=== PATIENT | male | born 1970 | race Two or more races ===

== ENCOUNTER 2024-05-20 14:19 | Emergency (ER) | payer SELFPAY ==
[2024-05-20] VITALS (14 sets, daily range): BP systolic 106–141; BP diastolic 59–78; PULSE 66–98; RESP 1–25; TEMP 36.4–37.2; O2SAT 93–99; BMI 21.4
--- NOTE | 2024-05-20 14:44 | PD.EDSEIZ ---
ED Seizures RME/HPI General Chief Complaint: Seizure Stated Complaint: SIEZURE Time Seen by Provider: 05/20/24 14:44 Arrival date/time: 05/20/24 14:19 RME / HPI RME / HPI Narrative: 53 year old male presents to the ED [facility] for seizure today. Per medics, seizure was witnessed by others in the [facility], described as tonic-clonic and lasting 1 minute. While in the ED patient has no complaints. Patient mentioned he does have history of seizures and on Dilantin, which he last took 3 days ago. Reportedly went to the pharmacy to get a refill of his medication which they did not fill. Patient unable to report why the medication was not filled. Patient admits to vaping. Denies smoking cigarettes, drug use, or drinking alcohol. Related Data Previous Rx's ?Medication ?Instructions ?Recorded levetiracetam 500 mg tablet 500 mg PO Q12H #20 tabs 10/05/21 (Keppra) levetiracetam 750 mg tablet 750 mg PO BID #60 tabs 05/20/24 Allergies Allergy/AdvReac Type Severity Reaction Status Date / Time No Known Allergies Allergy Verified 01/18/20 13:14 Review of Systems Review of Systems Narrative Review of Systems: Constitutional: DENIES; Fevers Eyes: DENIES; Loss of vision Head/Ear/Nose: DENIES; Loss of hearing Throat: DENIES; Dysphagia Cardiovascular: DENIES; Chest pain, dyspnea or syncope Respiratory: DENIES; Shortness of breath Gastrointestinal: DENIES; Rectal bleeding or melena. Genitourinary: DENIES; Dysuria (painful or difficult urination) Musculoskeletal: DENIES; Arthralgia (pain in a joint),; Skin: DENIES; Rash Neurological: SEE HPI +seizure. DENIES; Loss of function or movement Psychiatric: DENIES; recent major life stressor, emotional problem, illicit drug use or abuse Endocrinology: DENIES; Weight change Hematologic/Lymphatic: DENIES; Abnormal bruising Allergic/Immunologic: DENIES; Urticaria (hives) Past Medical History Past Medical History NEUROLOGIC: Positive Seizures (EPILEPSY) CARDIAC: Negative Congestive Heart Failure RESPIRATORY: Negative Chronic Obstructive Pulmonary Disease (COPD) GENITOURINARY: Negative Renal Disease ENDOCRINE: Negative Diabetes Mellitus Type 1 or Diabetes Mellitus Type 2 Social History SMOKING STATUS: Current every day smoker ED Exam Narrative Physical exam: Physical Exam: General: The vital signs were reviewed. He is alert awake smiling playful very thankful is very poor dentition the patient is non-toxic, in no apparent distress and appears healthy with a patent airway, no respiratory distress and has no apparent circulatory problems. Head & Scalp: Normocephalic, atraumatic. Face: Appears normal and is without lesions, deformity. Ears: Left external pinna appears normal. Right external pinna appears normal. Eyes: The sclera is anicteric. No obvious photophobia. The Left and Right Orbit/Lid/Conjunctiva appears normal without swelling, discoloration or injection. Nose: The nose is without deformity, discharge or tenderness; Throat: Appears normal. The mucous membranes are pink and moist without exudates, redness or mass seen. The tongue appears normal. Neck: The neck is supple and no apparent mass or adenopathy. Chest: The chest wall is normal in size and symmetry and has no chest wall tenderness or crepitus. The patient displays normal ventilator effort without retractions, accessory muscle use and has adequate air movement bilaterally with no wheezes and no rales. Cardiovascular: Regular rate and rhythm; No murmurs, rubs, or gallops; Gastrointestinal: The abdomen appears normal. No obvious hernias or mass. The abdomen is soft and benign, non-distended, with no pain, no guarding and no rebound tenderness. Bowel sounds are present and normal sounding. No CVA tenderness. Genitourinary: Back/Spine: Not as tender normal Spektor Extremities/Musculoskeletal/lymphatic: The bilateral upper and lower extremities are warm. There is no evidence of arterial insufficiency. There is no evidence of venous insufficiency/edema. The patient spontaneously moves bilateral upper and lower extremities with no pain and no limitation of movement. There is no apparent, injury or trauma. Skin: The skin is warm, dry and intact. No rashes. No petechia. No purpura. No abnormal bruising. The color is appropriate with no cyanosis. Mental status/Psychiatric: Mental status is appropriate for age. The patient has no apparent delusions, visual hallucinations, no apparent audible hallucinations. The patient has no apparent suicidal thoughts/ideation and no apparent homicidal thoughts/ideation. Neurological: The patient is awake, alert, interactive, cordial, cooperative and is oriented to name and situation. The patient follows commands and answers historical question with no impairment. There is no visual disturbance apparent. The pupils are equal and reactive bilaterally with normal eye movements and no diplopia The bilateral upper and lower extremities have normal strength, normal range of motion and normal functioning. The gait, station and balance appear to be baseline with no acute change Course Quality Measures none Orders Category Date Time Status Miscellaneous Nursing Order NOW Care 05/20/24 14:[address] head/brain wo con Stat Exams 05/20/24 14:45 Completed CBC Stat Lab 05/20/24 14:50 Completed Comprehensive Metabolic Panel Stat Lab 05/20/24 16:36 Completed Drug Screen,Urine Stat Lab 05/20/24 14:50 Completed Lactate (Lactic Acid) Stat Lab 05/20/24 14:50 Results Urinalysis, C/S if Indicated Stat Lab 05/20/24 14:50 Completed Venous Blood Gas Stat Lab 05/20/24 14:50 Completed LORazepam [Ativan Inj] Med 05/20/24 15:29 Discontinued 2 mg .ROUTE .STK-MED ONE LORazepam [Ativan Inj] Med 05/20/24 15:34 Discontinued 2 mg IVP X1 ONE levETIRAcetam INJ [Keppra Inj] Med 05/20/24 14:44 Discontinued 1,000 mg IVP X1 ONE Vital Signs Vital signs: Vital Signs Temperature 99 F 05/20/24 15:45 Pulse Rate 98 05/20/24 15:45 Respiratory Rate 17 05/20/24 15:45 Blood Pressure 141/78 H 05/20/24 15:45 Pulse Oximetry (%) 94 L 05/20/24 15:45 Oxygen Delivery Method Room Air 05/20/24 15:45 Pulse ox is 94% on room air which is adequate. Seizure MDM Narrative MDM Narrative:: Patient is been here several times in the past he has been noncompliant with his medications states he ran out of his Dilantin 3 days ago shows his bottle with all the paper worn off and there is no print on it in the last records we have here he was on Keppra. Patient states he used to drink but stopped drinking because he became a [employer]. Patient does not appear to be injured anywhere he does not appear to be ill in any way. Will load with some Keppra and do a mini workup and reevaluate. He clearly had 1 witnessed tonic-clonic seizure today. Medical workup was ordered on arrival including Keppra. CT of the head read by myself reveals no acute bleed. There is left parietal encephalomalacia otherwise the rest the brain scan appears grossly normal. Formal read is pending at 1541 hrs. At 1530 hrs. patient is having a tonic-clonic seizure in the room and nurse informed for the that the Keppra has not been given. He got loaded with Keppra and is got his Ativan and he has been sleeping since that time with no further seizure activity at 1716 hrs. Laboratory studies show a urine drug screen which is unremarkable urinalysis is unremarkable. Lactic acid came back at 6.1 which is not surprising as this was post tonic-clonic seizure. pH was 7.31 and the venous specimen close to normal. CBC is a white count of 6.5 hemoglobin 13.1. Patient's postictal and post sedation from the Ativan that was signed out to the oncoming doctor 1800 hrs. and he is alert awake and walking he can resume taking his Keppra at home At 1730 hrs. patient sleeping he arouses but falls back to sleep. Care to the oncoming doctor as mentioned above Patient data External records reviewed:: [facility] previous records (I reviewed ED visit on 10/05/2021) and EMS form Clinical information provided by:: patient and EMS Social determinants that could affect healthcare access:: housing ([facility]eless [facility] ) Patient has the following chronic illnesses:: seizures, medication noncompliance How is presenting disease/condition affected by chronic disease/condition?: exacerbated by Evaluation data The following diagnostics were reviewed and interpreted by me:: lab results, radiology exam(s) and EKG tracing(s) (Sinus rhythm, rate 89, no STEMI. ) Lab and/or radiology exams considered but not ordered:: None Interpretation Summary: Ordering Physician: Codey George MD Date of Service: 05/20/24 Procedure(s): CT head/brain wo con Accession Number(s): [id number] cc: Codey George MD; Vickey Us MD~ Examination: CT brain head without contrast. 2-D sagittal coronal reconstructions Date and time of exam:May 20, 2024 1408 hrs. Indications: Onset seizures today CTDI: vol (mGy):50.7 DLP: (mGycm):1055 Technique: Multiple CT axial sections of the brain have been obtained, 5 mm slice thickness. Contrast has not been administered. 2-D sagittal, coronal reconstructions have been obtained Low dose protocols were performed. One or more of the following dose reduction techniques were used; automated exposure control, adjustment of the mA and/or KV according to patient size, use of iterative reconstruction technique. Findings: No significant ventricular enlargement. Left frontal encephalomalacia Intra-axial or extra-axial hemorrhage density is not seen. No mass effect or midline shift Basal cisterns are not remarkable. Fourth ventricle is midline. Cranial vault intact. Impression: Negative for acute hemorrhage, mass effect or midline shift Consider elective brain MRI follow-up, pre and postcontrast, seizure protocol Dictated By: Vickey Us MD Signed By: <Electronically signed by Vickey Us MD in OV> 05/20/24 1535 Medications / Prescriptions Medications or Prescriptions considered but not ordered:: None Medication administrations:: Medication Administration History Discontinued Medications Levetiracetam (Levetiracetam Inj 100 Mg/Ml Vial 5ml) 1,000 mg IVP X1 ONE Stop: 05/20/24 14:45 Last Admin: 05/20/24 15:35 Dose: 1,000 mg Documented By: KALEN Lorazepam (Lorazepam 2 Mg/Ml Vial) 2 mg IVP X1 ONE Stop: 05/20/24 15:35 Last Admin: 05/20/24 15:35 Dose: 2 mg Documented By: KALEN Lorazepam (Lorazepam 2 Mg/Ml Vial) Confirm Administered Dose 2 mg .ROUTE .STK-MED ONE Stop: 05/20/24 15:30 Last Admin: 05/20/24 15:44 Dose: Not Given Documented By: KALEN Non-Admin Reason: Duplicate Medication on eMAR See above Consultations Consultation(s) initiated? (list below): No Diagnosis Seizure Differential Diagnosis: intractable seizure disorder, focal seizure, generalized seizure and epileptic seizure Most likely diagnosis given after review of the tests above:: Seizure disorder Seizure Noncompliance with medication regimen Admission Indicated Admission indicated?: not indicated Admission Request Was there a request for admission?: No Disposition Plan Disposition Plan: Discharge Discharge Attestation Discharge Attestation: The patient and all family members were given an opportunity to ask questions and understood the discharge instructions. Discharge instructions specifically effects, indications for sooner follow up or return to the emergency department, and the expected course of current diagnosis. Patient condition: Stable Critical Care Time Critical Care Time Critical Care Time: Yes Total Critical Care Time (min.): 40 Attestation: Patient had a seizure while in the department which caused me to leave other care activities to to attend to the seizure. He was rolled on his side he was suction given Ativan and the Keppra was started this would be the second seizure in the day to our history. The high probability of sudden, clinically significant deterioration in the patient's condition required the highest level of my preparedness to intervene urgently. The services I provided to this patient were to treat and/or prevent clinically significant deterioration. Services included the following: chart data review, reviewing nursing notes and/or old charts, documentation time, health and wellness sales consultant collaboration regarding findings and treatment options, medication orders and management, direct patient care, vital sign assessments and ordering, interpreting and reviewing diagnostic studies and lab tests. Aggregate critical care time includes only time during which I was engaged in work directly related to the patient's care, as described above, whether at bedside or elsewhere in the Emergency Department. It did not include time spent performing other reported procedures or the services of residents, students, nurses or physician assistants. Discharge Plan Prescriptions/Referrals Prescriptions/Med Rec: New levetiracetam 750 mg tablet 750 mg PO BID Qty: 60 2RF No Action levetiracetam [Keppra] 500 mg tablet 500 mg PO Q12H Qty: 20 0RF Problem List Clinical Impression: Seizure disorder, Seizure, Noncompliance with medication regimen Patient/Caregiver Discharge Instructions Print Language: South African
[2024-05-20 15:08] LABS: Collection Type, Urine Clean Catch
[2024-05-20 15:13] LABS: Base Excess, Venous -4 (-3-3); O2 Saturation, Venous 93 % (96-97); PCO2, Venous 44 mmHg (36-56); PO2, Venous 66 mmHg (15-58); pH, Venous 7.31 (7.33-7.66)
[2024-05-20 15:14] LABS: Basophils % (Auto) 1 % (0-2.5); Eosinophils # (Auto) 0.5 Thou/mm3 (0.0-0.5); Eosinophils % (Auto) 7 % (0-10); Hematocrit 38.7 % (41.0-53.0); Hemoglobin 13.1 g/dL (13.5-16.0); Immature Granulocytes % (Auto) 0 % (0-0); Immature Granulocytes Auto 0.02 Thou/mm3 (0.00-0.00); Lactate (Lactic Acid) 6.1 mMol/L (0.4-2.0); Lymphocytes % (Auto) 31 % (10-50); Mean Corpuscular HGB Conc 33.9 g/dl (31.0-37.0); Mean Corpuscular Hemoglobin 30.8 pg (25.0-35.0); Mean Corpuscular Volume 91 fL (80-100); Monocytes # (Auto) 0.6 Thou/mm3 (0.0-0.8); Monocytes % (Auto) 9 % (0-12); Neutrophils # (Auto) 3.4 Thou/mm3 (1.8-7.7); Neutrophils % (Auto) 52 % (37-80); Nucleated Red Blood Cell % 0 /100 WBC (0); Platelet Count 362 Thou/mm3 (140-440); RDW Standard Deviation 44.4 fL (35.1-43.9); Red Blood Count 4.26 Miln/mm3 (4.50-5.90); White Blood Count 6.5 Thou/mm3 (3.8-10.6)
[2024-05-20 15:16] LABS: Bilirubin,Urine Negative (Negative); Blood,Urine Negative (Negative); Clarity,Urine Clear (Clear/Hazy); Color,Urine Lt-Yellow (Lt Yel-Yel); Culture Indicated,Urine Not Indicated; Glucose, Urine Negative (Negative); Hyaline Casts,Urine < 1 /hpf (0-1); Ketones,Urine Trace (Negative); Leukocyte Esterase,Urine Negative (Negative); Nitrite,Urine Negative (Negative); Protein,Urine 1+ (Neg - Trace); RBC,Urine 2 /hpf (0-3); Specific Gravity,Urine 1.024 (1.001-1.035); Squamous Epithelial Cell,Urine < 1 /hpf (0-5); Urobilinogen,Urine Negative mg/dL (0.0-1.0); WBC,Urine 5 /hpf (0-5)
[2024-05-20 15:28] LABS: Amphetamine/Methamp Scrn,U Negative (Negative); Barbiturate Screen,Urine Negative (Negative); Benzodiazepines Screen,Urine Negative (Negative); Benzoylecgonine Screen, Ur Negative (Negative); Fentanyl Screen,Urine Negative (Negative); Opiate Screen,Urine Negative (Negative); THC Screen,Urine Negative (Negative)
[2024-05-20] MEDS: LORazepam 2 MG/ML VIAL IVP (15:35)
[2024-05-20] MEDS: levETIRAcetam INJ 100 MG/ML VIAL 5ML 1000 MG IVP (15:35)
[2024-05-20 17:22] LABS: Alanine Aminotransferase 19 U/L (10-49); Albumin, Serum 4.1 gm/dL (3.5-5.0); Albumin/Globulin Ratio 1.6 (1.2-2.2); Alkaline Phosphatase 101 U/L (46-116); Anion Gap 10 (7-16); Aspartate Amino Transferase 18 U/L (0-34); BUN/Creatinine Ratio 24 Ratio (12-20); Bilirubin,Total < 0.2 mg/dL (0.3-1.2); Blood Urea Nitrogen 19 mg/dL (9-23); Carbon Dioxide 25.4 mMol/L (20.0-31.0); Chloride 105 mMol/L (98-107); Creatinine (Component) 0.8 mg/dL (0.6-1.3); Estimated Creatinine Clearance 83.7 mL/min (>60); Globulin 2.5 gm/dL (2.3-3.5); Glucose 114 mg/dL (74-106); Osmolality,Calculated 282 (275-295); Potassium 4.1 mMol/L (3.4-5.1); Sodium 140 mMol/L (136-145); Total Protein 6.6 gm/dL (5.7-8.2); eGFR > 60 See Note
[2024-05-20 18:07] LABS: Reflex Lactate? Y
--- NOTE | 2024-05-20 18:15 | PD.EDADDENDU ---
Emergency Room Addendum Addendum Narrative: Signed out at 6p.
[2024-05-20 18:24] LABS: Lactic Acid, 3 HR 1.4 mMol/L (0.4-2.0)
--- NOTE | 2024-05-20 18:40 | EDNOTE_ITS ---
Emergency Room Addendum <Oliverio Quevedo - Last Filed: 05/20/24 21:50> Addendum Narrative: 1800 Care assumed from Codey Villagran MD. Past medical, surgical, social and family history reviewed. Vitals and home medications reviewed. Results and treatment plan discussed. I will assume the care of the patient at this time and will follow the patient, pending disposition. Please refer to the emergency department record for history and examination from initial visit. The following addendum documentation note is intended to reflect any pending information, findings, or radiology results not included in the patient?s initial chart. Repeat lactic acid is negative. The patient was administered Ativan, but Keppra was not given in time. Currently, the patient remains under observation, and we are awaiting further responsiveness when he wakes up. <Lorabritton Bo - Last Filed: 05/20/24 22:36> Addendum Narrative: 1800 Care assumed from Codey Villagran MD. Past medical, surgical, social and family history reviewed. Vitals and home medications reviewed. Results and treatment plan discussed. I will assume the care of the patient at this time and will follow the patient, pending disposition. Please refer to the emergency department record for history and examination from initial visit. The following addendum documentation note is intended to reflect any pending information, findings, or radiology results not included in the patient?s initial chart. Repeat lactic acid is negative. The patient was administered Ativan, but Keppra was not given in time. Currently, the patient remains under observation, and we are awaiting further responsiveness when he wakes up. 2225: Patient is alert, awake, and interactive. Patient is stable to be discharged home. MD Attestation <Oliverio Quevedo - Last Filed: 05/20/24 21:50> MD Attestation Scribe Attestation: Kartik, Vikas Quevedo, am scribing for and in the presence of Dr. Izquierdo. Provider Notation: Although this document has been carefully reviewed, there may still be some phonetic and other typographical errors. These errors are purely grammatical due to imperfections in the software program and should not be co nstrued in any way to compromise the substance of the patient's medical care during this visit.
[2024-05-20] MEDS: SODIUM CHLORIDE 0.9% 1000 ML 1,000 ML 999 ML IV (18:48)
== END 2024-05-20 22:33 | disposition home or self-care (01) ==
PROVIDERS: Emergency Medicine; Emergency Provider Emergency Medicine
DX: G40.409 Other generalized epilepsy and epileptic syndromes, not intractable, without status epilepticus (principal); G93.89 Other specified disorders of brain; T42.0X6A Underdosing of hydantoin derivatives, initial encounter; Z91.148 Patient's other noncompliance with medication regimen for other reason; Z59.01 Sheltered homelessness; F17.290 Nicotine dependence, other tobacco product, uncomplicated
CPT/HCPCS: 36415; 70450; 80053; 80307; 81001; 82803; 83605; 85025; 96361; 96374; 96375; 99284; J1953; J2060; J7030

== ENCOUNTER 2024-09-21 20:03 | Emergency (ER) | payer SELFPAY ==
[2024-09-21 20:04] VITALS: BP 120/81; PULSE 75; RESP 18; TEMP 36.7; O2SAT 96
[2024-09-21 20:05] VITALS: BMI 26.6
[2024-09-21 21:53] VITALS: BP 118/75; PULSE 71; RESP 18; TEMP 36.6; O2SAT 95
--- NOTE | 2024-09-22 04:53 | PD.EDANKLE ---
Lower Extremity Injury RME/HPI General Chief Complaint: Ankle/Foot Injury Stated Complaint: LEFT GREAT TOE NAIL HALF FELL OFF Time Seen by Provider: 09/21/24 21:40 Arrival date/time: 09/21/24 20:03 54M with history of seizures and homelessness presents to ED with L big toenail pain after he accidentally ripped off a nail while toweling himself off. Limitations: no limitations Related Data Previous Rx's ?Medication ?Instructions ?Recorded levetiracetam 500 mg tablet 500 mg PO Q12H #20 tabs 10/05/21 (Keppra) levetiracetam 750 mg tablet 750 mg PO BID #60 tabs 05/20/24 mupirocin 2 % topical ointment 1 applic topical BID #22 grams 09/21/24 Allergies Allergy/AdvReac Type Severity Reaction Status Date / Time No Known Allergies Allergy Verified 09/21/24 20:05 Review of Systems Review of Systems Systems Reviewed: All systems reviewed, normal except as documented Constitutional Constitutional: Reports system reviewed and no additional complaints, except as documented, Denies fever(s) and Denies headache(s) ENT Ears, Nose, Mouth, and Throat: Denies disequilibrium and Denies headache(s) Cardiovascular Cardiovascular: Reports system reviewed and no additional complaints, except as documented, Denies chest pain and Denies dyspnea Respiratory Respiratory: Reports system reviewed and no additional complaints, except as documented, Denies cough and Denies dyspnea Gastrointestinal Gastrointestinal: Reports system reviewed and no additional complaints, except as documented, Denies abdominal pain, Denies nausea and Denies vomiting Neurologic Neurologic: Reports system reviewed and no additional complaints, except as documented, Denies confusion, Denies disequilibrium and Denies headache(s) Psychiatric Psychiatric: Denies confusion Past Medical History Past Medical History NEUROLOGIC: Positive Seizures CARDIAC: Negative Congestive Heart Failure RESPIRATORY: Negative Chronic Obstructive Pulmonary Disease (COPD) GENITOURINARY: Negative Renal Disease ENDOCRINE: Negative Diabetes Mellitus Type 1 or Diabetes Mellitus Type 2 Social History SMOKING STATUS: Never smoker ED Exam General Limitations: Present no limitations General appearance: Present alert and in no apparent distress Head Head exam: Present atraumatic Eye Eye exam: Present normal appearance, PERRL and EOMI ENT ENT exam: Present normal exam, normal oropharynx and mucous membranes moist Neck Neck exam: Present normal inspection, full ROM and trachea midline Chest Chest inspection: Present normal inspection and symmetric chest wall rise Respiratory Respiratory exam: Present normal lung sounds bilaterally Cardiovascular Cardiovascular exam: Present regular rate, normal rhythm and normal heart sounds Abdominal Exam Abdominal exam: Present soft and normal bowel sounds Extremities Exam Extremities exam: Present full ROM Expanded Lower Extremity Exam Foot/toe exam: Present full ROM and nail avulsion (L big toe partial) Back Exam Back exam: Present normal inspection and full ROM Neurological Exam Neurological exam: Present alert, oriented X3 and CN II-XII intact Psychiatric Psychiatric exam: Present normal affect and normal mood Skin Skin exam: Present warm, dry, intact and normal color Course Quality Measures none Orders Category Date Time Status Wound Care NOW Care 09/21/24 21:41 Completed Vital Signs Vital signs: Vital Signs Temperature 98.1 F 09/21/24 20:04 Pulse Rate 75 09/21/24 20:04 Respiratory Rate 18 09/21/24 20:04 Blood Pressure 120/81 09/21/24 20:04 Pulse Oximetry (%) 96 09/21/24 20:04 Oxygen Delivery Method Room Air 09/21/24 20:04 O2 at 96% on RA and WNLs Extremity Injury, Lower MDM Narrative MDM Narrative:: 54M with history of seizures and homelessness presents to ED with L big toenail pain after he accidentally ripped off a nail while toweling himself off. Physical exam reveals partial L big toenail avulsion. Patient is afebrile, calm, and alert. Wound cleaned/irrigated and bandaged. Patient data External records reviewed:: [facility] previous records Clinical information provided by:: patient Social determinants that could affect healthcare access:: substance use Patient has the following chronic illnesses:: seizures How is presenting disease/condition affected by chronic disease/condition?: exacerbated by Evaluation data The following diagnostics were reviewed and interpreted by me:: other (specify) (none) Lab and/or radiology exams considered but not ordered:: not ordered Interpretation Summary: n/a Medications / Prescriptions Medications or Prescriptions considered but not ordered:: not ordered Medication administrations:: n/a Consultations Consultation(s) initiated? (list below): No Diagnosis Extremity Injury, Lower Differential Diagnosis: ankle sprain and strain, acute internal derangement of knee, puncture wound of foot, fracture of toe, ankle fracture and other (nail avulsion) Most likely diagnosis given after review of the tests above:: nail avulsion Admission Indicated Admission indicated?: not indicated Admission Request Was there a request for admission?: No Disposition Plan Disposition Plan: Discharge Discharge Attestation Discharge Attestation: The patient and all family members were given an opportunity to ask questions and understood the discharge instructions. Discharge instructions specifically effects, indications for sooner follow up or return to the emergency department, and the expected course of current diagnosis. Patient condition: Stable Discharge Plan Plan Patient Disposition: HOME (Self Care) Discharge Disposition comment: Stable Prescriptions/Referrals Prescriptions/Med Rec: New mupirocin 2 % ointment 1 applic topical BID Qty: 22 0RF No Action levetiracetam [Keppra] 500 mg tablet 500 mg PO Q12H Qty: 20 0RF levetiracetam 750 mg tablet 750 mg PO BID Qty: 60 2RF Problem List Clinical Impression: Avulsion of nail Patient/Caregiver Discharge Instructions Education Materials: ED Detached Fingernail or Toenail Additional Instructions: Please follow-up with PCP within 24-48 hours and return immediately if symptoms worsen. Keep nail bed moist with cream and covered with dressing. Print Language: Syriac Stand Alone Forms: Patient Portal Info Letter GRAHAM/TEST LEAD APPLICATION TESTING Supervising Physician GRAHAM/SAL Supervising Physician: Dr. Izquierdo
== END 2024-09-21 21:51 | disposition home or self-care (01) ==
PROVIDERS: Emergency Provider Emergency Medicine
DX: S91.202A Unspecified open wound of left great toe with damage to nail, initial encounter (principal); W22.8XXA Striking against or struck by other objects, initial encounter; Y93.E8 Activity, other personal hygiene; Z59.00 Homelessness unspecified
CPT/HCPCS: 99282